=== PATIENT | male | born 2000 | race Caucasian/White ===

== ENCOUNTER 2020-03-28 01:48 | Emergency (ER) | payer OTHER ==
[2020-03-28] MEDS ORDERED: FAMOTIDINE 20 MG/50 ML IVPB 50 ML IVPB ONE (01:51)
[2020-03-28] MEDS ORDERED: MAG HYDROX/AL HYDROX/SIMETH 30 ML UNIT-DOSE CUP PO ONE (01:51)
[2020-03-28] MEDS ORDERED: ACETAMINOPHEN 1000 MG/100 ML VIAL (NON FORMULARY) IVPB ONE (01:51)
[2020-03-28] MEDS ORDERED: ONDANSETRON 4 MG/2 ML VIAL IVPUSH ONE (01:51)
[2020-03-28] MEDS ORDERED: SODIUM CHLORIDE 1,000 ML IV STA (01:51)
[2020-03-28] MEDS ORDERED: ACETAMINOPHEN INJECTION 100 ML IVPB ONE (01:58)
[2020-03-28] MEDS ORDERED: ONDANSETRON 4 MG/2 ML VIAL ONE (01:58)
[2020-03-28] MEDS ORDERED: MAG HYDROX/AL HYDROX/SIMETH 30 ML UNIT-DOSE CUP ONE (01:58)
--- NOTE | 2020-03-28 01:59 | PDOC ---
History of Present Illness - General Chief Complaint: Nausea/Vomiting Stated Complaint: nausea/vomiting Time Seen by Provider: 03/28/20 01:51 History Source: Patient Exam Limitations: No Limitations - History of Present Illness Initial Comments: 03/28/20 01:51 20YOM without PMH who p/w upper abdominal discomfort, profuse vomiting, and watery diarrhea for the past 9 hours. States he was fasting all day, finally ate some chili in the afternoon, and shortly thereafter started vomiting and having the upper abdominal discomfort. He denies any prior episodes of these symptoms. Denies any f/c, constipation, back pain, chest or shoulder pain, cough, chest pain, lightheadedness, dysuria or testicular symptoms. He did not try any medications for his sxs. Thinks he vomited 20 times, no blood in emesis or in stool, no black or white stool. Denies any alcohol use ever. Past History - Medical History Allergies/Adverse Reactions: Allergies Allergy/AdvReac Type Severity Reaction Status Date / Time No Known Drug Allergies Allergy Verified 03/28/20 01:50 peanut Allergy Verified 03/28/20 01:50 Home Medications: Ambulatory Orders Ondansetron [Zofran *Odt*] 4 mg SL BID PRN #14 tablet 03/28/20 Review of Systems - Review of Systems Able to Perform ROS?: Yes Comments:: 03/28/20 01:52 GEN: malaise, no fever, chills, or generalized weakness HEENT: no ear pain, congestion, sore throat, vision change, or eye pain CV: no chest pain, palpitations, lightheadedness, syncope, or edema RESP: no SOB, wheezing, or cough GI: abdominal pain, nausea, vomiting, diarrhea, no constipation, or rectal bleed : no dysuria, hematuria, or discharge MSK: no muscle weakness or pain, no joint swelling or pain NEURO: no headache, vertigo, numbness, tingling, or focal weakness PSYCH: no SI, HI, or behavior change SKIN: no jaundice, rash, lesions, or unexplained bruises ROS otherwise negative except as noted in HPI *Physical Exam - Physical Exam 03/28/20 01:53 GENERAL: very tall and fit-appearing, A/Ox4, a bit uncomfortable but nontoxic appearing, answers questions appropriately, family at bedside is supportive, patient initially lying down on ED stretcher and not actively wretching but vomits clear fluid into sink after conversation HEENT: PERRLA, EOMI, moist mucous membranes NECK/BACK: no midline ttp, no spinal step-off or deformity, no hematoma, full ROM, neck supple CARDIOVASCULAR: regular rate/rhythm, no MGR, strong peripheral pulses, capillary refill <2 seconds, extremities wwp, no edema LUNGS/RESPIRATORY: no respiratory distress, CTAB GI/ABDOMEN: symmetric [id number], normoactive BS, soft, minimal epigastric ttp, no midline pulsatile masses : no CVA tenderness MSK/EXTREMITIES: no muscle atrophy, no acute deformity SKIN: warm and dry, no pallor, no jaundice, no rash, no pathologic-appearing bruising, no skin breakdown, no cuts, no lesions NEUROLOGICAL: GCS 15, CN II-XII grossly intact, 5/5 strength proximally and distally, no facial droop Medical Decision Making - Medical Decision Making 03/28/20 01:55 20YOM without PMH p/w vomiting, diarrhea, upper abdominal discomfort after eating chili. Most likely gastroenteritis, possible gastritis/PUD. Very unlikely biliary pathology as the patient has no RUQ ttp and negative Meraz's sign, does not fit the typical demographic of cholecystitis or choledocholithiasis. Very unlikely pancreatitis as patient denies alcohol use. Unlikely cannabinoid hyperemesis as patient denies marijuana use. Very unlikely testicular torsion or other pathology as the patient reports no testicular or scrotal pain and states discomfort is isolated to upper abdomen. Will start with medications and IVF, will check BG, and then will re-assess to determine if workup is required. Provider Orders Category Date Time Status Acetaminophen Injection [Ofirmev Injection -] Medication 03/28/20 01:51 Once 1,000 mg IVPB ONCE ONE Famotidine 20mg (Premixed) - 1X (ONCE) Medication 03/28/20 01:51 Ordered Famotidine 20 mg/50 ml Ivpb [Pepcid 20 mg Premixed Ivpb -] 50 ml IVPB ONCE Mag Hydrox/Al Hydrox/Simeth [Mylanta Oral Suspension -] Medication 03/28/20 01:51 Once 30 ml PO ONCE ONE Ondansetron Injection [Zofran Injection] Medication 03/28/20 01:51 Once 8 mg IVPUSH ONCE ONE Sodium Chloride 0.9% - 1000mL (1X BOLUS DOSE) Medication 03/28/20 01:51 Ordered Sodium Chloride [Normal Saline -] 1,000 ml IV ASDIR Medications Generic Name Dose Route Start Last Admin Trade Name Freq PRN Reason Stop Dose Admin Sodium Chloride 1,000 mls @ 1,000 mls/hr 03/28/20 01:51 Normal Saline - IV 03/28/20 02:50 ASDIR STA Famotidine/Sodium Chloride 50 mls @ 100 mls/hr 03/28/20 01:51 Pepcid 20 Mg Premixed Ivpb - IVPB 03/28/20 02:20 ONCE ONE Discontinued Medications Generic Name Dose Route Start Last Admin Trade Name Freq PRN Reason Stop Dose Admin Acetaminophen 1,000 mg 03/28/20 01:51 Ofirmev Injection - IVPB 03/28/20 01:52 ONCE ONE Al Hydroxide/Mg Hydroxide 30 ml 03/28/20 01:51 Mylanta Oral Suspension - PO 03/28/20 01:52 ONCE ONE Ondansetron HCl 8 mg 03/28/20 01:51 Zofran Injection IVPUSH 03/28/20 01:52 ONCE ONE 03/28/20 02:12 After Zofran, Ofirmev, and the patient quickly reports feeling much better. IV fluids running, patient has just taken the Maalox. He appears very comfortable and is no longer vomiting and repeat abdominal exam is benign. 03/28/20 02:33 Patient comfortable, texting, third abdominal exam benign, wants to go home. He is appropriate for DC home with close OP follow-up. Zofran ODT sent to his pharmacy. Specific return precautions discussed. Discharge - Discharge Information Problems reviewed: Yes Clinical Impression/Diagnosis: Vomiting and diarrhea, Abdominal pain in male Condition: Stable Disposition: HOME - Admission No - Additional Discharge Information Prescriptions: Ondansetron [Zofran *Odt*] 4 mg SL BID PRN #14 tablet PRN Reason: Nausea And/Or Vomiting - Follow up/Referral Referrals: ON STAFF,NOT [Non Staff, Medical] - - Patient Discharge Instructions Patient Printed Discharge Instructions: DI for Vomiting -- Adult Additional Instructions: You were seen in the ER for vomiting, diarrhea, and abdominal discomfort. We gave you medications and IV fluids which did help with your symptoms. We checked your blood sugar and it was normal. We do not know exactly what caused your symptoms tonight. It may have been a short-lived gastroenteritis, but there is no way to know for sure. We do not believe there is a medical emergency anymore, and you are safe to go home. Please focus on drinking plenty of fluids for the next few days. You can drink electrolyte drinks and broth to keep your electrolytes within the normal limits. If you feel well enough to each some bland foods, that is fine, but do not eat any rich foods for the next few days and remember fluids are the most important thing. When you are ready to start eating food again, start with the BRAT diet (bananas, rice, applesauce, and toast). Then you can slowly start reintroducing other foods. If you have any new or worsening symptoms, especially severe abdominal pain, inability to keep down liquids, bloody diarrhea or vomit, or dehydration to the point where you are lightheaded or fainting, come back to the ER right away. supervisor heat treating the Zofran we are sending to your pharmacy, and take this as directed only if you need medication for nausea. - Post Discharge Activity
[2020-03-28 02:10] VITALS: BP 108/63; PULSE 73; TEMP 97.3; BMI 23.6
== END 2020-03-28 02:44 | disposition home or self-care (01) ==
LOC: FER 01:48
PROC: 3E033NZ Introduction of Analgesics, Hypnotics, Sedatives into Peripheral Vein, Percutaneous Approach (ICD-10-PCS; principal; 2020-03-28)
PROC: 3E033GC Introduction of Other Therapeutic Substance into Peripheral Vein, Percutaneous Approach (ICD-10-PCS; 2020-03-28)
PROC: 3E0337Z Introduction of Electrolytic and Water Balance Substance into Peripheral Vein, Percutaneous Approach (ICD-10-PCS; 2020-03-28)
DX: R11.10 Vomiting, unspecified (principal); R19.7 Diarrhea, unspecified; R10.9 Unspecified abdominal pain
CPT/HCPCS: 82962; 99285-25; J0131